=== PATIENT | male | born 1965 | race Caucasian/White ===

== ENCOUNTER 2016-10-20 05:35 | Inpatient (IN) | payer OTHER ==
[2016-08-31 09:12] VITALS: BMI 37.0
[2016-08-31 09:15] VITALS: BMI 37.0
--- NOTE | 2016-08-31 09:55 | PAT Medication Instructions ---
Service Date Aug 31, 2016. Current Home Medication List Aspirin (Aspirin Ec), 81 MG PO QAM Atorvastatin (Lipitor), 10 MG PO HS Bupropion (Wellbutrin Sr), 150 MG PO BID Canagliflozin (Invokana), 100 MG PO QAM Cyanocobalamin (Vitamin B-12), Unknown Dose PO QAM Hydrocodon/Acetaminophen 5MG/300MG (Vicodin (5MG/300MG)), 1 TAB PO Q6H PRN for Pain Levothyroxine Sodium (Levothyroxine Sodium), 200 MCG PO QAM Metformin Hcl (Glucophage), 1,000 MG PO QAM Metformin Hcl (Glucophage), 1,500 MG PO EVENING MEAL Sitagliptin Phosphate (Januvia), 100 MG PO QAM [Pramipexole], 0.5 MG PO QID Medication Instructions For Your Scheduled Surgery Aspirin (Aspirin Ec), 81 MG PO QAM (check with surgeon for instructions) - Hold the following medications the morning of the surgery and afternoon/night doses day prior to surgery: [Pramipexole], 0.5 MG PO QID - Hold the following medications 48 hours prior to surgery: Metformin Hcl (Glucophage), 1,000 MG PO QAM Metformin Hcl (Glucophage), 1,500 MG PO EVENING MEAL - Hold the following medications the morning of surgery: Canagliflozin (Invokana), 100 MG PO QAM Sitagliptin Phosphate (Januvia), 100 MG PO QAM Cyanocobalamin (Vitamin B-12), Unknown Dose PO QAM - Take the following medications the morning of surgery with a sip of water: Levothyroxine Sodium (Levothyroxine Sodium), 200 MCG PO QAM Bupropion (Wellbutrin Sr), 150 MG PO BID Hydrocodon/Acetaminophen 5MG/300MG (Vicodin (5MG/300MG)), 1 TAB PO Q6H PRN for Pain (okay to take up to 4 hours prior to surgery if needed) - Take the following medications as scheduled the night before surgery: Atorvastatin (Lipitor), 10 MG PO HS Bupropion (Wellbutrin Sr), 150 MG PO BID Hydrocodon/Acetaminophen 5MG/300MG (Vicodin (5MG/300MG)), 1 TAB PO Q6H PRN for Pain If you have any questions please call us at [phone] (Regina Negron PA-C) or [phone] or [phone]
[2016-08-31 10:32] LABS: BASO % 0.5 %; BASO ABS # 0.05 K/uL (0-0.2); COMPLETE YES; EOS % 2.8 %; HEMATOCRIT 43.5 % (42-52); IG% 0.4 %; LYMPH % 26.3 %; MEAN CORPUSCULAR HEMOGLOBIN 32.4 pg (25-34); MEAN CORPUSCULAR HGB CONC 34.5 g/dl (32-36); MEAN PLATELET VOLUME 11.5 fL (7.4-10.4); MONO % 6.8 %; NEUT % 63.2 %; PLATELET COUNT 254 K/uL (130-400); RED BLOOD COUNT 4.63 M/uL (4.7-6.1)
[2016-08-31 10:36] LABS: URINE APPEARANCE CLEAR (CLEAR); URINE BILIRUBIN NEG (NEG); URINE COLOR YELLOW; URINE NITRITE NEG (NEG); URINE SPECIFIC GRAVITY 1.039 (1.000-1.030); UROBILINOGEN NEG (NEG)
--- NOTE | 2016-08-31 10:36 | DIAGNOSTIC IMAGING REPORT ---
CHEST PREADMISSION(PA/LAT) CLINICAL HISTORY: Preoperative evaluation COMPARISON STUDY: Chest radiograph November 16, 2013 FINDINGS: Lung volumes are normal. There is no consolidation to suggest pneumonia. No pneumothorax or pleural effusion is present. There is no evidence of pulmonary edema. Cardiomediastinal silhouette is normal. IMPRESSION: No acute cardiopulmonary findings. Electronically signed by: Oscar Garcia M.D. 08/31/2016 10:35 AM
[2016-08-31 10:38] LABS: REVIEW REQ? NO
[2016-08-31 10:39] LABS: MANUAL MICROSCOPIC REQUIRED? NO
[2016-08-31 11:03] LABS: BUN/CREATININE RATIO 12.5 (10-20); CALCIUM 8.7 mg/dl (8.5-10.1); CREATININE 1.2 mg/dl (0.60-1.40); POTASSIUM 4.4 mmol/L (3.5-5.1)
--- NOTE | 2016-09-06 07:36 | History & Physical Bridge Note ---
H&P Re-Evaluation Bridge Note: I have examined the patient, reviewed the History & Physical and in the interval since the performance of the History & Physical I have noted the following changes of clinical significance: No changes noted
--- NOTE | 2016-10-19 15:48 | HISTORY & PHYSICAL EXAMINATION ---
DATE OF ADMISSION: 10/20/2016 CHIEF COMPLAINT: Neck pain with pain radiating into the arms. HISTORY OF PRESENT ILLNESS: Mr. Delgado is a pleasant individual who we have been following some time, he has a known large disk herniation at the C4-C5 segment. He has had several trips to the Emergency Room. He has had significant conservative measures and at this point, is considering possible surgical intervention. He has noted weakness in the arm itself and difficulties using his left side. He denies any other numbness, tingling, or paresthesias. PAST MEDICAL HISTORY: Significant for diabetes, hypothyroidism, and hypercholesterolemia. CURRENT MEDICATIONS: Include aspirin, metoprolol, levothyroxine, bupropion, Boniva, atorvastatin, and pramipexole. ALLERGIES: SULFA. REVIEW OF SYSTEMS: Recorded in the patient's medical history. SOCIAL HISTORY: The patient denies any illicit drug use. PHYSICAL EXAMINATION: GENERAL: On exam, he stands and moves easily about the exam room. He has increased pain with neck extension, pain radiating down his arms. Negative Spurling test bilaterally. Weakness is noted in the right bicep. Strength of 4 /5. Sensation is intact to light touch. Proprioception is intact. Gait stable. NEUROLOGIC: Visual wynn are grossly intact. CARDIOVASCULAR EXAMINATION: Reveals no gross abnormalities. ABDOMEN: Soft and nontender. EXTREMITIES: Calves are supple and nontender. SKIN: Intact with no masses or lesions. The patient is alert and oriented. RADIOGRAPHIC IMAGES: Recent MRI reveals mild foraminal stenosis at C3-C4. There is a large right paracentral disk herniation C4-C5 with alteration in the contour of the cord. ASSESSMENT: Significant cervical spondylosis C3-C4 and C4-C5. PLAN: At this point, the patient has failed conservative measures. Consider performing anterior cervical corpectomy at C4 to help decompress the spinal cord. Main benefit of surgery is a significant chance of reduction of his radicular component and to a lesser degree his cervical pain. Risk of the surgery include, but are not limited to dysphonia, dysphagia, from anesthetics, stroke, blindness, infection, bleeding requiring transfusion, incomplete relief of symptoms, adjacent level disease, and need for reoperation. After thorough discussion, the patient would like to proceed with surgery as outlined above and we will proceed. If he has any further questions, he will contact our office. JUNE
[2016-10-20] VITALS (22 sets, daily range): BP systolic 105–142; BP diastolic 70–89; PULSE 64–103; TEMP 36.4–37; O2SAT 95–99; Ht 175.3 cm; Wt 115.9 kg
[~2016-10-20] VITALS: Ht 175.3 cm; Wt 115.9 kg
[~2016-10-20 05:35] MED LIST: ASPI81TA28 PO; ATOR10TA88 PO; BUPR-79 PO; CANA1TAB PO; CEFAZOLIN 2000 MG/60 ML D5W IV SCH; CYAN100T PO; HYDR-3419 PO; LACTATED RINGER'S 1000ML 1,000 ML IV SCH; LEVO200T6 PO; METF-384 PO; METF1000 PO; Pramipexole PO; SITA100T3 PO
[2016-10-20] MEDS ORDERED: CEFAZOLIN 2000 MG/60 ML D5W IV SCH (06:00)
[2016-10-20] MEDS ORDERED: LACTATED RINGER'S 1000ML 1,000 ML IV SCH (06:00)
[2016-10-20] MEDS ORDERED: FENTANYL CITRATE INJ 50 MCG/1 ML 2 ML VIAL ONE ×4 (06:54→09:13)
[2016-10-20] MEDS ORDERED: MIDAZOLAM HCL 1 MG/ML 2ML VIAL ONE (06:54)
[2016-10-20] MEDS ORDERED: HYDROmorphone INJ 2 MG/ML SYR/VIAL ONE ×2 (08:04→09:21)
[2016-10-20] MEDS ORDERED: PROPOFOL IV EMULSION 10 MG/ML 20 ML VIAL IV ONE (08:43)
[2016-10-20] MEDS ORDERED: ROCURONIUM BROMIDE 10 MG/ML 5 ML VIAL ONE (08:43)
[2016-10-20] MEDS ORDERED: DEXAMETHASONE SOD INJ 4 MG/ML VIAL ONE (08:43)
[2016-10-20] MEDS ORDERED: LIDOCAINE HCL 2% 2 ML VIAL (20MG/ML) ONE (08:43)
[2016-10-20] MEDS ORDERED: PHENYLEPHRINE 100MCG/ML 5ML SYR IV PRN (08:45)
[2016-10-20] MEDS ORDERED: ATROPINE SULFATE 0.1 MG/ML 5ML SYR IV PRN (08:45)
[2016-10-20] MEDS ORDERED: EpHEDrine SULFATE INJ 50 MG/ML AMP IV PRN (08:45)
[2016-10-20] MEDS ORDERED: ONDANSETRON INJ 2 MG/ML 2 ML VIAL IV PRN ×2 (08:45→09:30)
[2016-10-20] MEDS ORDERED: BACITRACIN 50000 UNIT VIAL IR ONE (09:14)
[2016-10-20] MEDS ORDERED: FLOSEAL HEMOSTATIC MATRIX 5ML TOP ONE (09:14)
--- NOTE | 2016-10-20 09:22 | [facility] Post Operative Brief Note ---
Immediate Operative Summary Operative Date Oct 20, 2016. Pre-Operative Diagnosis Significant cervical spondylosis C3-C4 and C4-C5 Post-Operative Diagnosis same as preop Procedure(s) Performed C4 Corpectomy with Anterior Plate and Screw Fixation Surgeon Dr. George Waiter/Waitress Cocktail Lounge Surgeon(s) RACHEL Ortega Estimated Blood Loss 50ML Findings stenosis Specimens none per surgeon
[2016-10-20] MEDS ORDERED: LORAZEPAM 0.5 MG TAB PO PRN (09:30)
[2016-10-20] MEDS ORDERED: HYDROmorphone INJ 1 MG/ML SYR IV PRN (09:30)
[2016-10-20] MEDS ORDERED: LORAZEPAM INJ 0.5 MG in SYRINGE 0.75 ML IV PRN (09:30)
[2016-10-20] MEDS ORDERED: MAGNESIUM HYDROXIDE SUSP 30 ML UDC PO PRN (09:30)
[2016-10-20] MEDS ORDERED: DO NOT ADMINISTER FLU VACCINE PRN ×3 (09:30)
[2016-10-20] MEDS ORDERED: DO NOT ADMINISTER PNEUMOCOCCAL VACCINE PRN ×2 (09:30)
[2016-10-20] MEDS ORDERED: DiphenhydrAMINE HCL 50 MG/ML VIAL IV PRN (09:30)
[2016-10-20] MEDS ORDERED: NALOXONE HCL 0.4 MG/1 ML VIAL/CARP IV PRN (09:30)
[2016-10-20] MEDS ORDERED: RACEPINEPHRINE 2.25% NEBU SOLN 0.5 ML VIAL INH PRN (09:30)
[2016-10-20] MEDS ORDERED: DEXAMETHASONE INJ 8 MG in SYRINGE 0 ML IV PRN (09:30)
[2016-10-20] MEDS ORDERED: ACETAMINOPHEN IV 100 ML IV PRN (09:30)
[2016-10-20] MEDS ORDERED: ONDANSETRON INJ 2 MG/ML 2 ML VIAL ONE (09:39)
[2016-10-20] MEDS ORDERED: NEOSTIGMINE METHYLSULFATE 1 MG/ML 10ML VIAL ONE (09:39)
[2016-10-20] MEDS ORDERED: GLYCOPYRROLATE INJ 0.2 MG/ML VIAL ONE (09:39)
--- NOTE | 2016-10-20 09:39 | DIAGNOSTIC IMAGING REPORT ---
Cervical SPINE, INTRAOPERATIVE FLUOROSCOPY HISTORY: C3-C5 ACDF.. FLUOROSCOPY TIME: 8 seconds. FINDINGS: Intraoperative fluoroscopy was provided for the cervical spine. 2 fluoroscopic spot images were obtained. C3-C5 anterior cervical discectomy and fusion with a C4 corpectomy and bone graft. The hardware appears intact. IMPRESSION: Fluoroscopy provided for a C3-C5 ACDF. Electronically signed by: Zak Larry M.D. 10/20/2016 9:37 AM Dictated Date/Time: 10/20/2016 9:36 AM
--- NOTE | 2016-10-20 09:45 | OPERATIVE REPORT ---
DATE OF OPERATION: 10/20/2016 PREOPERATIVE DIAGNOSIS: Cervical spondylosis with myeloradiculopathy. POSTOPERATIVE DIAGNOSIS: Same. PROCEDURES PERFORMED: 1. Anterior cervical corpectomy C4. 2. Anterior cervical arthrodesis C3-C5. 3. Placement of PEEK cage 25 mm in height C3-C5. 4. Placement of Mansfield plate and screws C3-C5. 5. Placement of locally harvested morcellized autograft combined with DBM in the interbody cage. SURGEON: Dr. Titi George. ENERGY TECHNICIAN: Jeremias Sterling PA-C. Due to the complex nature of the procedure, the entire surgery was performed with the licensed investment sales assistant of [employer]. The housekeeper and laundry assistant, under direct supervision, was involved in the actual performance of all aspects of the surgical procedure including hemostasis, tissue retraction and incision, instrument management, patient positioning, and wound closure. ANESTHESIA: General. DISPOSITION: The patient awakened and taken to PACU in stable condition. HISTORY OF PATIENT'S PROBLEMS: This is a 50-year-old male who presents with above-mentioned diagnosis after failing an extensive course of nonoperative care, elected to undergo the above-mentioned procedure. Risks, benefits, pros, cons, and alternatives were outlined in detail preoperatively. DESCRIPTION OF PROCEDURE: The patient was met with preoperatively, case discussed and all questions were addressed. At that point, the patient was taken back to operative suite and after undergoing successful general intubation by the department of anesthesia was placed in prone position on Richardson table and Murphy wharf tender head. All bony prominences were well padded and the eyes were inspected to ensure there was no external pressure placed upon them. At this point, anterior cervical spine was prepped and draped in normal sterile fashion. With assistance of fluoroscopy, we identified the C4 vertebral body and a transverse incision was placed along the right anterior aspect of the cervical spine. Sharp dissection with the assistance of bipolar electrocautery performed down to and exposing anterior cervical spine from C3-C5. A self-retaining retractor was placed. I then performed a complete, corpectomy rather of C4 including bilateral foraminotomies, removal of all posterior annular fibers and longitudinal ligament for complete decompression. Barre distracting pins were utilized to assist us in our visualization. Endplates were then burred to subcortical bleeding bone. A 25 mm PEEK cage filled with locally harvested morcellized autograft and DBM was then tapped in position. Distracting apparatus was removed. All anterior osteophytes burred to a smooth cortical surface and a Mansfield plate and screws applied with the assistance of fluoroscopy. The incision was then copiously irrigated, explored to ensure there was no damage to surrounding structures or remaining bleeding and a 10 round MEGAN drain inserted and then closed with 2-0 Vicryl in the fascia, 4-0 Monocryl for final skin closure. Steri-Strips and sterile dressing placed. The patient was awakened and taken to PACU in stable condition. I attest to the content of the Intraoperative Record and any orders documented therein. Any exceptio ns are noted below.
[2016-10-20] MEDS ORDERED: PHARMACY GLYCEMIC MGMT CONSULT PRN (09:50)
[2016-10-20] MEDS: HYDROmorphone INJ 2 MG/ML SYR/VIAL IV PRN ×4 (09:55→10:20)
[2016-10-20] MEDS ORDERED: HydrALAZINE HCL 20 MG/ML VIAL ONE (10:12)
[2016-10-20] MEDS ORDERED: GLUCOSE 40% GEL 15 GM TUBE PO PRN (10:15)
[2016-10-20] MEDS ORDERED: GLUCOSE 10 TABS/TUBE PO PRN (10:15)
[2016-10-20] MEDS ORDERED: GLUCAGON FOR INJ 1 MG VIAL SQ PRN (10:15)
[2016-10-20] MEDS ORDERED: DEXTROSE 50% 50 ML SYR IV PRN (10:15)
[2016-10-20] MEDS ORDERED: NURSING VERBAL MED ORDER ONE (10:30)
[2016-10-20] MEDS ORDERED: HydrALAZINE HCL 20 MG/ML VIAL IV. PRN (11:45)
[2016-10-20] MEDS: INSULIN ASPART 100 UNITS/ML 3 ML PEN SC SCH ×4 (11:47→20:41)
[2016-10-20] MEDS: LACTATED RINGER'S 1000ML 1,000 ML IV SCH ×2 (11:52→22:33)
[2016-10-20] MEDS ORDERED: SCOPOLAMINE 1.5 MG TDSY TD SCH (12:00)
--- NOTE | 2016-10-20 12:47 | Anesthesiology Progress Note ---
Anesthesia Post Op Note Date & Time Oct 20, 2016 at 12:47 Vital Signs Pain Intensity: 4.0 Vital Signs Past 12 Hours Date Time Temp Pulse Resp B/P Pulse Ox O2 Delivery O2 Flow Rate FiO2 10/20/16 12:42 100 16 97 Nasal Cannula 2.0 10/20/16 12:12 36.4 96 16 131/79 97 10/20/16 11:45 36.9 84 16 124/80 96 Nasal Cannula 2.0 10/20/16 11:15 95 Nasal Cannula 4.0 10/20/16 11:15 Nasal Cannula 10/20/16 11:15 37.0 88 16 142/80 95 Nasal Cannula 4.0 10/20/16 10:55 36.5 82 16 127/83 97 Nasal Cannula 4 10/20/16 10:45 83 16 138/86 99 Nasal Cannula 4 10/20/16 10:35 73 16 130/97 95 Nasal Cannula 4 10/20/16 10:25 75 16 144/89 95 Nasal Cannula 4 10/20/16 10:15 71 16 149/96 97 Nasal Cannula 4 10/20/16 10:10 75 16 161/105 97 Nasal Cannula 4 10/20/16 10:05 71 16 146/98 97 Nasal Cannula 4 10/20/16 10:00 Nasal Cannula 4 10/20/16 09:55 36.3 70 16 160/101 100 Mask 10 10/20/16 09:45 36.3 69 16 152/94 99 Mask 10 10/20/16 09:35 36.3 69 16 159/81 99 Mask 10 10/20/16 06:00 37.0 74 16 126/86 98 Room Air Notes Mental Status: alert / awake / arousable, participated in evaluation Pt Amnestic to Procedure: Yes Nausea / Vomiting: adequately controlled Pain: adequately controlled Airway Patency, RR, SpO2: stable & adequate BP & HR: stable & adequate Hydration State: stable & adequate Anesthetic Complications: no major complications apparent
[2016-10-20] MEDS: OXYCODONE HCL IR 5 MG TAB (IMMEDIATE RELEASE) PO PRN ×2 (13:40→20:36)
[2016-10-20] MEDS ORDERED: RXC5 PO (14:15)
--- NOTE | 2016-10-20 14:16 | Discharge Instructions ---
Discharge Instructions Admission Reason for Admission: Cervical Spinal Stenosis Discharge Discharge Diagnosis / Problem: stenosis Discharge Goals Goal(s): Improve function Activity Recommendations Activity Limitations: per Instructions/Follow-up section . Instructions / Follow-Up Instructions / Follow-Up ACTIVITY RECOMMENDATIONS: SELF CARE INSTRUCTIONS AFTER CERVICAL FUSIONS 1. No smoking. Smoking drastically decreases the chance of a solid fusion. 2. No bending, lifting more than 5 pounds, or twisting (roll like a log when turning in bed). 3. You may shower 3 days after surgery. Thoroughly dry wound. Do not soak in the tub. 4. Cervical collar: Must be worn at all times including sleeping. You may remove the brace only to bath, eat and if you are sitting in a recliner. 5. Please walk as much as you can for exercise. Gradually increase the distance that you walk as your endurance increases. SPECIAL CARE INSTRUCTIONS: VERY IMPORTANT TO READ AND REVIEW A. Do not take any anti-inflammatory medications (i.e. Indocin, Advil, Aspirin, Naprosyn, Aleve, Motrin, etc.) as these may inhibit the chance of a solid fusion. Tylenol is okay to take. B. Your surgical incision has been closed with a cosmetic suture under the skin that will dissolve in about 6 weeks. In 14 days, you can use a pair of clean scissors and cut the suture that is left outside of the skin at the ends of your incision. C. Complications are uncommon, but please contact us if you have any signs or symptoms of: 1. wound infection (fever higher than 102.5 degrees F, redness, separation of wound, drainage, or increasing pain from the incision) 2. blood clots in legs (pain, swelling, redness and warmth in legs) 3. urinary tract infection (fever higher than 102.5 degrees, burning upon urination or increased frequency of urination) 4. nerve problems (inability to walk on your toes or heels, numbness, loss of bowel or bladder control) 5. any other symptoms that concern you. D. Please call the office at if you have any concerns or questions about your operation or recovery. MANAGING PAIN AFTER SPINAL SURGERY 1. Narcotic medication is intended for short-term use and will be provided for surgical pain. Surgical pain usually lasts for a period of 4-6 weeks. Narcotic medication includes Percocet, Vicodin, Darvocet, Tylenol #3 or Lortab. 2. Longer-term pain is more appropriately treated with non-narcotic medication such as Tylenol ES. 3. Muscle spasm is not appropriately treated with narcotics. Muscle relaxers such as Soma, Flexeril or Skelaxin can be used along with Tylenol ES. 4. Remember that we all live with some "aches and pains". This is not unusual or uncommon after an injury or as we get older. 5. We will provide appropriate medication within the normal guidelines of their prescribed use. We will also be very cautious and aware of potential abuse and extended duration of patients' medication needs. 6. Please allow 2-3 days to process refills. Prescriptions will not be mailed but must be picked up at the office. FOLLOW UP VISIT: Keep your scheduled follow-up appointment. Any questions, please call the office at . Current Hospital Diet Patient's current hospital diet: Clear Liquid Diet Discharge Diet Recommended Diet: Regular Diet Procedures Procedures Performed: C4 Corpectomy with Anterior Plate and Screw Fixation Pending Studies Studies pending at discharge: no Medical Emergencies . Who to Call and When: Medical Emergencies: If at any time you feel your situation is an emergency, please call 911 immediately. . Non-Emergent Contact Non-Emergency issues call your: Primary Care Provider . "Provider Documentation" section prepared by Titi George. VTE Core Measure Inpt VTE Proph given/why not?: Sheryl Gagnon, SCD's
--- NOTE | 2016-10-20 14:38 | Pharmacy Progress Note ---
Glycemic Control Intl Consult Date of Service Oct 20, 2016. Scope Glycemic Pharmacist consulted by Dr George on 10/20/16 for glycemic control and to write orders per [facility] inpatient glycemic control protocol Objective Weight (Kilograms): 115.900 Accuchecks BSG (last 24hrs): Test 10/20/16 06:05 10/20/16 09:40 Bedside Glucose 155 mg/dl (70-99) 183 mg/dl (70-99) HbA1c Outdated, last on file is 10.1% on 08/01/2014 Recent Pertinent Medications Outpatient Anti-diabetic Regimen: * Invokana 100mg PO QAM * Metformin 1,000mg PO AM + Metformin 1,500mg PO PM * Januvia 100mg PO QAM Risk Factors for Insulin Resistance: * Steroids * Recent Surgery * Diet Assessment & Plan ASSESSMENT: * 50yo T2DM male with unknown degree of outpatient control of diabetes - will order A1c per protocol for tomorrow AM * Pt is maintained on oral antidiabetic agents as an outpatient * Oral agents are not recommended for inpatient use d/t difficultly titrating in acute situations, drug interactions, & changing PO intake/status * ADA recommends re-initiating outpatient oral agents 1-2 days prior to discharge if/when appropriate if they were held on admission. * Recommended regimen for inpatient use is SQ Basal Bolus insulin regimen with Lantus + NovoLog * Patient is insulin naive. Weight based SQ basal bolus insulin dosing per [facility] calculator will be used while oral antidiabetic agents on hold. Will titrate parameters based on BSG trends * Patient received dexamethasone intra-operatively and will receive 3 doses post -operatively. * Steroids have their most profound effect on post-prandial hyperglycemia which is best controlled with NovoLog dosing per aggressive CF/CR. * ADA & AACE recommend a goal blood sugar range 140-180 mg/dl for the majority of critically ill & non-critically ill patients. However, more stringent targets may be selected in individual cases. Will utilize more stringent goal of 110-140mg/dl based on patient age & comorbidities. Additionally, tighter glycemic control is warranted to facilitate wound/infection healing post- operatively. PLAN FOR INPATIENT GLYCEMIC CONTROL: * Holding outpatient oral diabetes medications * Will try to re-initiate 1-2 days prior to discharge once renal function assessed and PO intake adequate * Basal insulin with LANTUS 20 units SQ BID * Administer 1/2 dose if BSG < 120mg/dl * Correctional Insulin with NOVOLOG per scale ACHS or Q6hrs while NPO. Additional checks + coverage at 0000 & 0400 for RTC steroid dosing * Goal Range: Low 110 mg/dL - High 140 mg/dL * Correction Factor: 15 mg/dL/unit * Nutritional / Prandial insulin per carb ratio of 1 unit per 5 grams CHO consumed * A1c with AM labs tomorrow * Please note that the plan above was derived based on current level of insulin resistance and hospital stress. These recommendations are appropriate for inpatient admission only. Plan of care upon discharge will need to be reassessed to avoid potential outpatient hypo/hyperglycemia. Thank you.
[2016-10-20] MEDS: CEFAZOLIN IV 2,000 MG in DEXTROSE 5% 50ML 50 ML IV SCH ×2 (15:07→22:33)
[2016-10-20] MEDS: CHECK SCOPOLAMINE PATCH PLACEMENT SCH ×2 (16:00→23:09)
[2016-10-20] MEDS: INSULIN GLARGINE SOLOSTAR 100 UNITS/ML 3 ML PEN SC SCH (17:37)
[2016-10-20] MEDS: DEXAMETHASONE INJ 6 MG in SYRINGE 0 ML IV SCH (17:40)
[2016-10-20] MEDS: BuPROPion SR 150 MG TABCR PO SCH (20:35)
[2016-10-20] MEDS: DOCUSATE SODIUM 100 MG CAP PO SCH (20:35)
[2016-10-20] MEDS ORDERED: ATORVASTATIN 10 MG TAB PO SCH (21:00)
[2016-10-21] VITALS (8 sets, daily range): BP systolic 107–111; BP diastolic 62–72; PULSE 71–85; TEMP 36.9–37; O2SAT 92–98
[2016-10-21] MEDS: INSULIN ASPART 100 UNITS/ML 3 ML PEN SC SCH ×3 (00:26→08:59)
[2016-10-21] MEDS: DEXAMETHASONE INJ 6 MG in SYRINGE 0 ML IV SCH ×2 (02:06→10:14)
[2016-10-21] MEDS ORDERED: LEVOTHYROXINE 200 MCG TAB PO SCH (06:00)
[2016-10-21] MEDS: CEFAZOLIN IV 2,000 MG in DEXTROSE 5% 50ML 50 ML IV SCH (06:25)
[2016-10-21 08:07] LABS: ESTIMATED AVERAGE GLUCOSE 166 mg/dl; HA1C FLAG Normal (Normal)
[2016-10-21] MEDS: CHECK SCOPOLAMINE PATCH PLACEMENT SCH (08:54)
[2016-10-21] MEDS: BuPROPion SR 150 MG TABCR PO SCH (08:55)
[2016-10-21] MEDS: DOCUSATE SODIUM 100 MG CAP PO SCH (08:55)
[2016-10-21] MEDS: INSULIN GLARGINE SOLOSTAR 100 UNITS/ML 3 ML PEN SC SCH (09:00)
[2016-10-21] MEDS: OXYCODONE HCL IR 5 MG TAB (IMMEDIATE RELEASE) PO PRN (10:16)
--- NOTE | 2016-10-21 13:07 | DISCHARGE SUMMARY ---
PRINCIPAL DIAGNOSIS: Cervical spondylosis with myeloradiculopathy. HOSPITAL COURSE FOLLOWS: On 10/20/2016 patient underwent anterior cervical corpectomy and fusion, tolerated this well and taken to the orthopedic floor postoperatively. Postop day #1, he was up and ambulatory. Arm symptoms improved. MEGAN drain decreasing appropriately. Subsequently discharged home. Discharge orders and instructions and be found on the chart for further review.
[2016-10-22] MEDS ORDERED: BISACODYL 5 MG TABEC PO PRN (06:00)
[2016-10-22] MEDS ORDERED: BISACODYL 10 MG SUPP PR PRN (06:00)
[2016-10-22] MEDS ORDERED: POLYETHYLENE (MIRALAX) 17 GM PACK PO SCH (09:00)
[2017-02-14] MEDS ORDERED: CLON0.5T3 PO (02:20)
[2017-02-14] MEDS ORDERED: LEVO25TA5 PO (02:21)
[2017-02-14] MEDS ORDERED: HYDRAER4 PR (03:08)
== END 2016-10-21 10:55 | disposition home or self-care (01) | DRG 473 ==
LOC: ENRESERVTM → ENRESERVDT → C.ACU 05:35 → C.3E 07:30
PROVIDERS: ADMIT Orthopaedic Surgery Orthopaedic Surgery of the Spine; ATTEND Orthopaedic Surgery Orthopaedic Surgery of the Spine
PROC: 00NW0ZZ Release Cervical Spinal Cord, Open Approach (ICD-10-PCS; principal; 2016-10-20 07:30)
PROC: 0RG20A0 Fusion of 2 or more Cervical Vertebral Joints with Interbody Fusion Device, Anterior Approach, Anterior Column, Open Approach (ICD-10-PCS; principal; 2016-10-20 07:30)
DX: M47.12 Other spondylosis with myelopathy, cervical region (principal); M47.22 Other spondylosis with radiculopathy, cervical region; E11.40 Type 2 diabetes mellitus with diabetic neuropathy, unspecified; E78.00 Pure hypercholesterolemia, unspecified; E03.9 Hypothyroidism, unspecified; G25.81 Restless legs syndrome; G47.33 Obstructive sleep apnea (adult) (pediatric); F17.210 Nicotine dependence, cigarettes, uncomplicated; E66.9 Obesity, unspecified; Z68.37 Body mass index [BMI] 37.0-37.9, adult; Z86.73 Personal history of transient ischemic attack (TIA), and cerebral infarction without residual deficits; Z79.82 Long term (current) use of aspirin; Z79.84 Long term (current) use of oral hypoglycemic drugs; Z79.891 Long term (current) use of opiate analgesic; Z79.899 Other long term (current) drug therapy